=== PATIENT | male | born 1980 | race Caucasian/White ===

== ENCOUNTER 2018-02-27 05:33 | Emergency (ER) | payer SELFPAY ==
[2018-02-27 05:47] VITALS: O2SAT 99
--- NOTE | 2018-02-27 06:56 | C.PDOC ---
History Of Present Illness 38 y/o male presents to ED for complaints of left sided rib area pain that began 5 days ago after he fell in the bathroom. Patient states symptoms worsen with movement and deep breathing. Denies SOB, dysuria, back pain, neck pain, or any other physical complaints. Time Seen by Provider: 02/27/18 05:59 Chief Complaint (Nursing): Abdominal Pain History Per: Patient History/Exam Limitations: no limitations Onset/Duration Of Symptoms: Hrs Current Symptoms Are (Timing): Still Present Radiation Of Pain To:: None Associated Symptoms: denies: Fever, Chills, Nausea, Vomiting, Diarrhea Exacerbating Factors: Movement, Deep Breaths Alleviating Factors: None Last Bowel Movement: Today Recent travel outside of the [place]: No Past Medical History Reviewed: Historical Data, Nursing Documentation, Vital Signs Vital Signs: Last Vital Signs Temp 97.8 F 02/27/18 07:04 Pulse 82 02/27/18 07:04 Resp 20 02/27/18 07:04 BP 128/77 02/27/18 07:04 Pulse Ox 99 02/27/18 07:04 - Medical History PMH: No Chronic Diseases - [facility] Procedures DEBRID OPN FX-RADIUS/ULN (01/30/13) Family History: States: No Known Family Hx - Social History Hx Alcohol Use: Yes Hx Substance Use: No - Immunization History Hx Tetanus Toxoid Vaccination: No Hx Influenza Vaccination: No Hx Pneumococcal Vaccination: No Review Of Systems Constitutional: Negative for: Fever, Chills Gastrointestinal: Negative for: Nausea, Vomiting, Abdominal Pain, Diarrhea Musculoskeletal: Positive for: Other (Left sided rib area pain ) Skin: Negative for: Rash Neurological: Negative for: Weakness, Numbness Physical Exam - Physical Exam Appears: Well, Non-toxic, No Acute Distress Skin: Normal Color, Warm, Dry, No Rash, No Ecchymosis Head: Atraumatic, Normacephalic Eye(s): bilateral: Normal Inspection, PERRL, EOMI Nose: Normal, No Discharge, No Deformity Oral Mucosa: Moist Neck: Normal ROM, No Midline Cervical Tenderness, No Paracervical Tenderness, Supple Chest: Symmetrical, Tenderness (Lateral left 8th-9th ribs ) Cardiovascular: Rhythm Regular, No Friction Rub, No Murmur Respiratory: Normal Breath Sounds, No Decreased Breath Sounds, No Rales, No Rhonchi, No Wheezing Gastrointestinal/Abdominal: Normal Exam, Soft, No Tenderness, No Distention, No Guarding, No Rebound Back: Normal Inspection, No CVA Tenderness, No Vertebral Tenderness Extremity: Normal ROM, No Tenderness, No Pedal Edema, No Deformity, No Swelling Extremity: Bilateral: Atraumatic, Normal Color And Temperature, Normal ROM Pulses: Left Radial: Normal, Right Radial: Normal Neurological/Psych: Oriented x3, Normal Speech, Normal Motor, Normal Sensation, Other (No focal deficits ) Gait: Steady ED Course And Treatment O2 Sat by Pulse Oximetry: 99 (RA) Pulse Ox Interpretation: Normal - Other Rad Rib series X-Ray: Interpreted by Me Interpretation: Negative Medical Decision Making Medical Decision Making: Administered Toradol. Ordered Chest and ribs X-Ray. On re-exam, the patient reports improvement of symptoms. Lungs are CTA, heart is RRR, abdomen is soft, non-tender and the patient is tolerating PO well. Follow up with the medical doctor within 1-2 days. Return if worsened. Disposition - Disposition Referrals: [facility] [Outside] Disposition: HOME/ ROUTINE Disposition Time: 06:30 Condition: GOOD Additional Instructions: Follow up with the medical doctor within 1-3 days. return if worsened. Prescriptions: Cyclobenzaprine [Flexeril] 5 mg PO TID #21 tab Naproxen [Naprosyn] 500 mg PO BID #20 tab Instructions: Bruised Rib (DC) Forms: [facility] (Gambian), [employer] Excuse Print Language: UKRAINIAN - Clinical Impression Clinical Impression: Rib contusion - PA / [employer] / Resident Statement MD/DO has reviewed & agrees with the documentation as recorded. - Scribe Statement The provider has reviewed the documentation as recorded by the Guanako Hernandez All medical record entries made by the Guanako were at my direction and personally dictated by me. I have reviewed the chart and agree that the record accurately reflects my personal performance of the history, physical exam, medical decision making, and the department course for this patient. I have also personally directed, reviewed, and agree with the discharge instructions and disposition.
--- NOTE | 2018-02-27 06:58 | C.PDOC ---
Time Seen by Provider: 02/27/18 05:59 Chief Complaint (Nursing): Abdominal Pain Past Medical History Vital Signs: Last Vital Signs Temp 98.4 F 02/27/18 05:43 Pulse 69 02/27/18 05:43 Resp 18 02/27/18 05:43 BP 136/89 02/27/18 05:43 Pulse Ox 99 02/27/18 05:43 - [facility] Procedures DEBRID OPN FX-RADIUS/ULN (01/30/13) - Social History Hx Alcohol Use: Yes Hx Substance Use: No - Immunization History Hx Tetanus Toxoid Vaccination: No Hx Influenza Vaccination: No Hx Pneumococcal Vaccination: No ED Course And Treatment O2 Sat by Pulse Oximetry: 99 Disposition - Disposition Referrals: [facility] [Outside] Disposition: HOME/ ROUTINE Disposition Time: 06:55 Condition: GOOD Additional Instructions: Follow up with the medical doctor within 1-3 days. return if worsened. Prescriptions: Cyclobenzaprine [Flexeril] 5 mg PO TID #21 tab Naproxen [Naprosyn] 500 mg PO BID #20 tab Instructions: Bruised Rib (DC) Forms: [facility] (Israeli), [employer] Excuse Print Language: AUSTRALIAN - Clinical Impression Clinical Impression: Abdominal pain
[2018-02-27 07:05] VITALS: BP 128/77; PULSE 82; RESP 20; TEMP 97.8
--- NOTE | 2018-02-27 09:55 | RAD ---
Date of service: 02/27/2018 PROCEDURE: Radiographs of the Chest and Left Ribs. HISTORY: rib injury, pleuritic pain COMPARISON: None available. TECHNIQUE: Frontal radiograph of the chest and multiple oblique radiographs of the left ribs were obtained. FINDINGS: LEFT RIBS: No fracture or focal lesion visualized. LUNGS: No acute pulmonary disease appreciated bilaterally. PLEURA: No pneumothorax or pleural fluid. CARDIOVASCULAR: Normal sized heart. No pulmonary vascular congestion. OTHER FINDINGS: None. IMPRESSION: Unremarkable radiographs of the chest and left ribs. No left rib fracture.
== END 2018-02-27 07:05 | disposition home or self-care (01) ==
LOC: C.ER 05:33 → SUPCPDRO 05:33 → C.ERFT 05:33 → C.ER 07:05
DX: S20.219A Contusion of unspecified front wall of thorax, initial encounter (principal); W19.XXXA Unspecified fall, initial encounter; Y92.002 Bathroom of unspecified non-institutional (private) residence as the place of occurrence of the external cause
CPT/HCPCS: 71101; 96374; 99284; J1885